=== PATIENT | female | born 1955 | race Caucasian/White ===

== ENCOUNTER 2018-09-20 21:22 | Emergency (ER) | payer OTHER ==
[~2018-09-20] VITALS: Ht 162.6 cm; Wt 75.0 kg
[2018-09-20 21:24] VITALS: Ht 162.6 cm; Wt 75.0 kg
[2018-09-20] MEDS ORDERED: SOD CHLORIDE 0.9% 750 ML IV ONE (21:30)
[2018-09-20] MEDS ORDERED: INSULIN LISPRO 100 UNIT/ML VIAL SC ONE (22:30)
[2018-09-20] MEDS ORDERED: ASPIRIN 81 MG TAB PO ONE (23:00)
[2018-09-20] MEDS ORDERED: NITROGLYCERIN (SL) 0.4 MG TAB SL ONE (23:00)
[2018-09-20] MEDS ORDERED: CLOP75TA19 PO (23:09)
[2018-09-20] MEDS ORDERED: HYDR25TA6 PO (23:11)
[2018-09-20] MEDS ORDERED: CARV25TA97 PO (23:12)
--- NOTE | 2018-09-21 01:09 | ERD ---
ER Documentation Chief Complaint Chief Complaint hyperglycemia 'hi' at home HPI 63-year-old female with a history of coronary disease, history of diabetes who presents for evaluation of hyperglycemia. Patient had a cortisone shot today, she states that she met her blood glucose which was very high. She also has been having any chest pain today which is on and off, she has taken multiple doses of nitroglycerin for her pain and this does relieve some of it. She states that she does get chest pain, but is never this bad. She denies leg swelling or hemoptysis. ROS All systems reviewed and are negative except as per history of present illness. Medications Home Meds Reported Medications Carvedilol* (Coreg*) Unknown Strength Tablet, PO BID, #60 TAB TAKE 1 AND 1/2TAB BID 09/20/18 Hydrochlorothiazide* (Hydrochlorothiazide*) Unknown Strength Tab, 1 TAB PO DAILY, #30 TAB 09/20/18 Clopidogrel Bisulfate* (Clopidogrel Bisulfate*) 75 Mg Tablet, 75 MG PO DAILY, #30 TAB 09/20/18 Allergies Allergies: Coded Allergies: Penicillins (Verified Allergy, Mild, RASH, 09/20/18) PMhx/Soc History of Surgery: Yes (STENT PLACEMENT, CABG, ) Anesthesia Reaction: No Hx Neurological Disorder: No Hx Respiratory Disorders: No Hx Cardiac Disorders: Yes (HTN) Hx Psychiatric Problems: No Hx Miscellaneous Medical Probl: Yes (DM) Hx Alcohol Use: No Hx Substance Use: No Hx Tobacco Use: No Smoking Status: Never smoker Physical Exam Vitals Vital Signs Date Temp Pulse Resp B/P (MAP) Pulse Ox O2 O2 Flow FiO2 Time Delivery Rate 09/20/18 96 15 157/86 98 Room Air 23:20 (109) 09/20/18 98.2 95 16 171/114 95 21:24 (133) Physical Exam Const: No acute distress Head: Atraumatic Eyes: Normal Conjunctiva ENT: Normal External Ears, Nose and Mouth. Neck: Full range of motion. No meningismus. Resp: Clear to auscultation bilaterally no rales or rhonchi Cardio: Regular rate and rhythm, no murmurs, no JVD Abd: Soft, non tender, non distended. Normal bowel sounds Skin: No petechiae or rashes Back: No midline or flank tenderness Ext: No cyanosis, or edema Neur: Awake and alert Psych: Normal Mood and Affect Result Diagram: 09/20/18213409/20/182134 Results 24 hrs Laboratory Tests Test 09/20/18 21:23 09/20/18 21:30 09/20/18 21:35 09/20/18 22:34 Blood Gas Blood venous Specimen Source Arterial Blood 09/20/2018 10:00:58 Date Drawn PM Arterial Blood VENOUS LINE Gas Puncture Site Jignesh Test N/A Venous Blood pH 7.332 Venous Blood pCO2 41.8 mmHG (Temp Corrected) Venous Blood pO2 38.5 mmHG (Temp Corrected) Venous Blood HCO3 21.6 mmol/L Venous Blood 71.4 mmHG Oxygen Saturation Venous Blood Base -4.0 mmol/L Excess Venous Blood 13.0 g/dl Total Hemoglobin Venous Blood 71.0 % Oxyhemoglobin Venous Blood 0.1 % Methemoglobin Carboxyhemoglobin 0.5 % Blood Gas 37.0 C Temperature Blood Gas ROOM AIR Modality FiO2 21.0 % Blood Gas MR Notified Whom Blood Gas 09/20/2018 10:05:19 Notified Time PM Bedside Glucose 524 mg/dL 457 mg/dL White Blood Count 7.3 10^3/ul Red Blood Count 4.43 10^6/ul Hemoglobin 12.6 g/dl Hematocrit 38.1 % Mean Corpuscular 86.0 fl Volume Mean Corpuscular 28.4 pg Hemoglobin Mean Corpuscular 33.1 g/dl Hemoglobin Concen t Red Cell 12.9 % Distribution Width Platelet Count 192 10^3/UL Mean Platelet 9.6 fl Volume Immature 0.800 % Granulocytes % Neutrophils % 87.2 % Lymphocytes % 10.1 % Monocytes % 1.8 % Eosinophils % 0.0 % Basophils % 0.1 % Nucleated Red 0.0 /100WBC Blood Cells % Immature 0.060 10^3/ul Granulocytes # Neutrophils # 6.4 10^3/ul Lymphocytes # 0.7 10^3/ul Monocytes # 0.1 10^3/ul Eosinophils # 0.0 10^3/ul Basophils # 0.0 10^3/ul Nucleated Red 0.0 10^3/ul Blood Cells # Prothrombin Time 11.7 Sec Prothrombin Time 0.9 Ratio INR International 0.85 Normalized Ratio Sodium Level 135 mmol/L Potassium Level 4.7 mmol/L Chloride Level 102 mmol/L Carbon Dioxide 21 mmol/L Level Anion Gap 12 Blood Urea 28 mg/dl Nitrogen Creatinine 1.15 mg/dl Est Glomerular 48 mL/min Filtrat Rate mL/min Glucose Level 568 mg/dl Hemoglobin A1c 8.0 % Calcium Level 9.1 mg/dl Phosphorus Level 3.0 mg/dl Magnesium Level 1.8 mg/dl Troponin I < 0.012 ng/ml Test 09/20/18 23:02 09/20/18 23:14 09/20/18 23:59 Urine Color COLORLESS Urine Clarity CLEAR Urine pH 6.0 Urine Specific 1.021 [place] Urine Ketones NEGATIVE mg/dL Urine Nitrite NEGATIVE mg/dL Urine Bilirubin NEGATIVE mg/dL Urine NEGATIVE mg/dL Urobilinogen Urine Leukocyte NEGATIVE [place]/ul Esterase Urine Microscopic 0 /HPF RBC Urine Microscopic 0 /HPF WBC Urine Hemoglobin NEGATIVE mg/dL Urine Glucose 3+ mg/dL Urine Total 2+ mg/dl Protein Bedside Glucose 483 mg/dL 492 mg/dL Current Medications Medications Dose Sig/Karishma Start Time Status Last (Trade) Ordered Route PRN Stop Time Admin Dose Reason Admin Sodium 750 ml @ ONCE ONCE 09/20/18 DC 09/20/18 Chloride 750 mls/hr IV 21:30 09/20/18 21:41 22:29 Insulin 12 unit ONCE ONCE 09/20/18 DC 09/20/18 Human SC 22:30 09/20/18 22:52 Lispro 22:31 (Humalog) Aspirin 324 mg ONCE ONCE 09/20/18 DC 09/20/18 (Aspirin) PO 23:00 09/20/18 22:56 23:01 1 tab ONCE ONCE 09/20/18 DC 09/20/18 Nitroglycerin SL 23:00 09/20/18 22:56 23:01 (Nitroglyceri n (Sl Tab) 0.4 Mg) Procedures/MDM This 63-year-old female presents for evaluation of chest pain and hyperglycemia Chest X-ray 1V Interpreted by me: Soft Tissue: No acute abnormalities Bones: No acute abnormalities Mediastinum/Cardiac Silhouette/Lungs: No acute abnormalities EKG: Rate/Rhythm: Normal Sinus Rhythm QRS, ST, T-waves: No changes consistent w/ acute ischemia Impression: No evidence of ischemia or arrhythmia #Hyperglycemia: Blood glucose was noted to be elevated in the 500s, she is given 12 units of subcu lispro as well as IV fluids, her lab work showed no evidence of DKA. I suspect hyperglycemia is most likely related to her cortisone shot. #Chest pain. Patient EKG showed no evidence of acute ischemia, troponin was also negative, given her strong cardiac history, I recommended admission, she was given 1 dose of nitroglycerin, as well as aspirin, as she is a [place] patient, she will be transferred for lateral care, I spoke with Dr. Guo. Have a low suspicion for pulmonary embolism or aortic dissection. Departure Diagnosis: Primary Impression: Hyperglycemia Additional Impression: Chest pain Chest pain type: unspecified Qualified Codes: R07.9 - Chest pain, unspecified Condition: Stable ANIKA POZO MD Sep 21, 2018 01:08
[2018-09-21 01:34] VITALS: BP 156/99; PULSE 92; RESP 19
== END 2018-09-21 01:35 | disposition short-term general hospital (02) ==
LOC: E/R 21:22
DX: E11.65 Type 2 diabetes mellitus with hyperglycemia (principal); R07.9 Chest pain, unspecified; I10 Essential (primary) hypertension; I25.10 Atherosclerotic heart disease of native coronary artery without angina pectoris; Z79.01 Long term (current) use of anticoagulants; Z95.1 Presence of aortocoronary bypass graft; Z98.61 Coronary angioplasty status
CPT/HCPCS: 36415; 71045; 80048; 81001; 82803; 82962; 83036; 83735; 84100; 84484; 85025; 85610; 93005; 96372; 99285; J1815; J7030